=== PATIENT | male | born 1995 | race Caucasian/White ===

== ENCOUNTER 2019-02-09 21:57 | Emergency (ER) | payer BC ==
[~2019-02-09] VITALS: Ht 177.8 cm; Wt 97.3 kg
[~2019-02-09 21:57] MED LIST: MUPI22OI2 TOP; SULF1TAB31 PO
[2019-02-09 22:00] VITALS: BP 136/83; PULSE 88; RESP 22; Ht 177.8 cm; Wt 97.3 kg
== END 2019-02-09 23:00 | disposition home or self-care (01) ==
LOC: FTE 21:57
DX: S50.361A Insect bite (nonvenomous) of right elbow, initial encounter (principal); W57.XXXA Bitten or stung by nonvenomous insect and other nonvenomous arthropods, initial encounter; Y92.9 Unspecified place or not applicable
CPT/HCPCS: 99283